=== PATIENT | female | born 1950 | race Caucasian/White ===

== ENCOUNTER → 2016-10-25 | Outpatient (CLI) | payer OTHER ==
[~2016-10-25] MED LIST: [UNRECOGNIZED DRUG - REMARK]
[2016-10-25 09:07] LABS: BLOOD UREA NITROGEN 14 mg/dL (7-18)
== END | disposition home or self-care (01) ==
LOC: STAR 07:45
PROVIDERS: ATTEND Obstetrics & Gynecology Female Pelvic Medicine and Reconstructive Surgery
DX: Z01.818 Encounter for other preprocedural examination (principal); N84.0 Polyp of corpus uteri
CPT/HCPCS: 36415; 71020; 80048; 85025; 93005

== ENCOUNTER 2016-11-01 05:24 | Day surgery (SDC) | payer OTHER ==
[~2016-11-01] VITALS: Ht 167.6 cm; Wt 108.5 kg
[2016-11-01] MEDS ORDERED: LACTATED RINGERS 1,000 ML IV SCH ×2 (06:18→07:51)
[2016-11-01] MEDS ORDERED: MISOPROSTOL 200 MCG TABLET ONE (06:23)
[2016-11-01] MEDS ORDERED: METHYLERGONOVINE 0.2 MG/ML IM ONE (06:23)
[2016-11-01] MEDS ORDERED: OXYTOCIN 10 UNITS/ML, 1ML ONE (06:23)
[2016-11-01] MEDS ORDERED: BUPIVACAINE/PF 0.25% ONE (06:23)
[2016-11-01 06:24] VITALS: BP 171/91
[2016-11-01] MEDS ORDERED: MIDAZOLAM 1 MG/ML, 2ML ONE (06:52)
[2016-11-01] MEDS ORDERED: FENTANYL PF 250 MCG/5ML ONE (06:52)
[2016-11-01] MEDS ORDERED: PROPOFOL 10 MG/ML, 20ML ONE (06:58)
[2016-11-01] MEDS ORDERED: ONDANSETRON 2MG/ML, 2ML ONE (06:58)
[2016-11-01] MEDS ORDERED: CEFAZOLIN 1,000 MG ONE (06:58)
[2016-11-01] MEDS ORDERED: DEXAMETHASONE 4 MG/ML, 1ML ONE (06:58)
[2016-11-01] MEDS ORDERED: KETOROLAC 30 MG/1 ML ONE (06:58)
[2016-11-01] MEDS ORDERED: FENTANYL PF 100 MCG/2ML IV PRN (07:30)
[2016-11-01] MEDS ORDERED: OXYcodone 5 MG/5 ML ORAL.SOL UDC PO PRN (07:30)
[2016-11-01] MEDS ORDERED: MEPERIDINE/PF 25MG/0.5ML IVPush PRN (07:30)
[2016-11-01] MEDS ORDERED: ACETAMINOPHEN 325 MG TABLET PO PRN (07:30)
[2016-11-01] MEDS ORDERED: METOCLOPRAMIDE 5 MG/ML, 2ML IV PRN (07:30)
[2016-11-01] MEDS ORDERED: HYDROmorphone 1 MG/ML, 1ML IV PRN (07:30)
[2016-11-01] MEDS ORDERED: MIDAZOLAM 1 MG/ML, 2ML IV PRN (07:30)
[2016-11-01] MEDS ORDERED: ONDANSETRON 2MG/ML, 2ML IVPush PRN ×2 (07:30→08:00)
[2016-11-01] MEDS ORDERED: hydrALAzine 20 MG/ML, 1ML IV PRN (07:30)
[2016-11-01] MEDS ORDERED: LABETALOL 5MG/ML, 20ML IV PRN (07:30)
[2016-11-01] MEDS ORDERED: PROMETHAZINE 25 MG/ML, 1ML IV PRN (07:30)
[2016-11-01] MEDS ORDERED: ALBUTEROL/IPRATROPIUM 2.5MG/0.5MG, 3 ML NPPB PRN (07:30)
[2016-11-01] MEDS ORDERED: SILVER NITRATE STICK TP ONE (07:46)
[2016-11-01] MEDS ORDERED: IBUPROFEN 600 MG TABLET PO PRN (08:00)
[2016-11-01] MEDS ORDERED: PROMETHAZINE 12.5 MG SUPP PR ONE (08:00)
[2016-11-01] MEDS ORDERED: OXYcodone/APAP 5/325MG TABLET PO PRN (08:00)
[2016-11-01] MEDS ORDERED: FENTANYL PF 100 MCG/2ML ONE (08:22)
[2016-11-01] MEDS ORDERED: ACETAMINOPHEN 325 MG/10.15 ML UDC ONE (08:22)
[2016-11-01] MEDS ORDERED: OXYcodone 5 MG/5 ML ORAL.SOL UDC ONE (08:23)
== END 2016-11-01 10:25 | disposition home or self-care (01) ==
LOC: OUT 05:24
PROVIDERS: ATTEND Obstetrics & Gynecology Female Pelvic Medicine and Reconstructive Surgery
DX: N84.0 Polyp of corpus uteri (principal); G43.909 Migraine, unspecified, not intractable, without status migrainosus; Z98.890 Other specified postprocedural states; Z82.49 Family history of ischemic heart disease and other diseases of the circulatory system
CPT/HCPCS: 58558; 88305; J0690; J1100; J1885; J2250; J2405; J2704; J3010; J3490; J7120; J2210; J2590